=== PATIENT | male | born 1950 | race Two or more races ===

== ENCOUNTER 2018-07-10 14:09 | Emergency (ER) | payer OTHER ==
[~2018-07-10] VITALS: Ht 157.5 cm; Wt 83.9 kg
[2018-07-10] MEDS ORDERED: Hydrogen Peroxide 473ml Bottle TOPIC ONE (14:34)
[2018-07-10 14:40] VITALS: BP 154/83
--- NOTE | 2018-07-10 14:40 | Emergency Room Report ---
History of Present Illness General Chief Complaint: Laceration Source: Patient (Cynthia Canela) Present Illness HPI 68 YO male presents to the ED c/o laceration to head after hitting his head on the corner of a car door when getting in very quickly. pt. reports taking blood thinning medication. He denies N/V. reports feeling out of it /dizzy immediately after but has resolved. PT. reports now feeling "tired". Denies LOC. pt. reports injury occurred 40 minutes ago. pt. denies unilateral weakness , dysarthria, paresthesias, imbalance or any other notable symptoms. pt. reports he take Brilinta for cardiac hx. Denies neck or back pain. reports 6/ 10 in severity localized tenderness to the scalp/ head with bleeding. Denies nausea or vomiting. Pt. states his last tetanus vaccination was well over 10 years ago. (Cynthia Canela) Allergies: Coded Allergies: FISH CONTAINING PRODUCTS (Verified Allergy, Unknown, 07/10/18) Patient History Past Medical History: see triage record Past Surgical History: none Pertinent Family History: none Reviewed Nursing Documentation: PMH: Agreed; PSxH: Agreed (Cynthia Canela) Nursing Documentation-PMH Past Medical History: No History, Except For Hx Cardiac Problems: Yes - Bipass; stent x2 Hx Diabetes: Yes (Cynthia Canela) Review of Systems All Other Systems: negative except mentioned in HPI (Cynthia Canela) Physical Exam Vital Signs Date Time Temp Pulse Resp B/P (MAP) Pulse Ox O2 Delivery O2 Flow Rate FiO2 07/10/18 14:10 98.2 70 12 160/91 97 Room Air Sp02 EP Interpretation: reviewed, normal General Appearance: no apparent distress, alert, GCS 15, non-toxic Head: normocephalic, other - Left parietal Scalp laceration approx 2 cm in length, and does not extend all the way through the dermis. Eyes: bilateral eye normal inspection, bilateral eye PERRL, bilateral eye EOMI ENT: hearing grossly normal, normal voice Neck: full range of motion, no bony tend Respiratory: lungs clear, normal breath sounds, speaking full sentences Cardiovascular #1: regular rate, rhythm Musculoskeletal: back normal, gait/station normal, normal range of motion, tender - TTP to the left parietal area on head Neurologic: alert, oriented x3, responsive, motor strength/tone normal, sensory intact, normal gait, speech normal, grossly normal Psychiatric: judgement/insight normal Skin: normal color, no rash, warm/dry, well hydrated, laceration - Left parietal Scalp laceration approx 2 cm in length, and does not extend all the way through the dermis. (Cynthia Canela) Procedures Laceration/Wound Repair Laceration/Wound Repair : Consent: Verbal Wound Location: head Wound's Depth, Shape: superficial Wound Length (cm): 2 Wound Explored: clean Irrigated w/ Saline (ccs): 500 Wound Repaired With: Dermabond Sterile Dressing Applied?: No Splint Applied?: No Sling Applied?: No Patient Tolerated: Well Complications: None (Cynthia Canela) Medical Decision Making PA Attestation Dr. madden is my supervising Physician whom patient management has been discussed with. (Cynthia Canela) Medicare Attestation The history of Lily Mcwilliams has been reviewed and management options for him have been examined and discussed by Bertin Freed. I have personally examined and interviewed the patient. (Bertin Freed MD) Diagnostic Impression: Primary Impression: Laceration of scalp Qualified Codes: S01.01XA - Laceration without foreign body of scalp, initial encounter Additional Impression: Head injury without concussion or intracranial hemorrhage Qualified Codes: S09.90XA - Unspecified injury of head, initial encounter ER Course 68 YO male presents to the ED c/o laceration to head after hitting his head on the corner of a car door when getting in very quickly. pt. reports taking blood thinning medication. He denies N/V. reports feeling out of it /dizzy immediately after but has resolved. PT. reports now feeling "tired". Denies LOC. pt. reports injury occurred 40 minutes ago. pt. denies unilateral weakness , dysarthria, paresthesias, imbalance or any other notable symptoms. pt. reports he take Brilinta for cardiac hx. Denies neck or back pain. reports 6/ 10 in severity localized tenderness to the scalp/ head with bleeding. Denies nausea or vomiting. Pt. states his last tetanus vaccination was well over 10 years ago. Ddx considered but are not limited to laceration, tendon injury, cellulitis, ICH , subdural hematoma, hemorrhage just to name a few. Vital signs: are WNL, pt. is afebrile H&PE are most consistent with: Left parietal Scalp laceration approx 2 cm in length, and does not extend all the way through the dermis. ORDERS: -CT Head no contrast. - Unremarkable/ WNL ED INTERVENTIONS: -Tetanus vaccine was administered as pt. vaccination status was unknown. - The wound was copiously irrigated with normal saline, and explored for foreign body for which no FB was found. - hemostasis achieved with pressure, then derma-phipps was applied. --Pt. tolerated well and there were no complications. Pt. given strict ED return precautions along with information about Head Injuries and symptoms to look for. Pt. instructed to return to ED immediately if he begins experiencing any of the listed symptoms. DISCHARGE: At this time pt. is stable for d/c to home. Will provide printed patient care instructions, and any necessary prescriptions. Care plan and follow up instructions have been discussed with the patient prior to discharge. (Cynthia Canela) CT/MRI/US Diagnostic Results CT/MRI/US Diagnostic Results : Imaging Test Ordered: CT Head No Contrast Impression " No evidence of acute fracture, hemorrhage, or intracranial process." Per official radiology report- Please see report for specific details. (Cynthia Canela) Last Vital Signs Date Time Temp Pulse Resp B/P (MAP) Pulse Ox O2 Delivery O2 Flow Rate FiO2 07/10/18 14:10 98.2 70 12 160/91 97 Room Air (Cynthia Canela) Disposition: HOME, SELF-CARE Condition: Stable Scripts Acetaminophen* (TYLENOL EXTRA STRENGTH*) 500 Mg Tablet 500 MG ORAL Q6H, #20 TAB 0 Refills Prov: Cynthia Canela 07/10/18 Patient Instructions: Head Injury, Adult, [id number], Nonsutured Laceration Care Additional Instructions: Take medications as directed. Follow up with a Primary Care Provider in 3-5 days, even if your symptoms have resolved. --Please review list of primary care clinics, if you do not already have a primary care provider Return sooner to ED if new symptoms occur, or current symptoms become worse. - Please note that this Emergency Department Report was dictated using whoactuallybalancer scale technology software, occasionally this can lead to erroneous entry secondary to interpretation by the dictation equipment. Cynthia Canela Jul 10, 2018 14:40 Bertin Freed MD Jul 12, 2018 13:54
[2018-07-10] MEDS ORDERED: Tetanus/Diptheria/Pertussis Vaccine 0.5ml Syr IM ONE (14:45)
--- NOTE | 2018-07-10 15:56 | Diagnostic Imaging Report ---
EXAM: CT Head Without Intravenous Contrast CLINICAL HISTORY: PAIN TECHNIQUE: Axial computed tomography images of the head/brain without intravenous contrast. CTDI is 70.53 mGy and DLP is 1453 mGy-cm. One or more of the following dose reduction techniques were used: automated exposure control, adjustment of the mA and/or kV according to patient size, use of iterative reconstruction technique. COMPARISON: No relevant prior studies available. FINDINGS: Brain: Unremarkable. No evidence of acute intracranial hemorrhage. No significant white matter disease. No edema. No mass effect or midline shift. Ventricles: Unremarkable. No ventriculomegaly. Bones/joints: Unremarkable. No depressed skull fracture. Soft tissues: Unremarkable. Sinuses: Mild mucosal thickening in the left maxillary sinus. Remaining visualized paranasal sinuses are clear. Mastoid air cells: Unremarkable as visualized. No mastoid effusion. IMPRESSION: No acute intracranial findings.
[2018-07-10] MEDS ORDERED: TYLENOL EXTRA500 MG ORAL (16:00)
[2018-07-10 16:11] VITALS: BP 132/84
[2018-07-10 16:12] VITALS: BP 154/83
== END 2018-07-10 16:16 | disposition home or self-care (01) ==
LOC: EMR 14:39
DX: S01.01XA Laceration without foreign body of scalp, initial encounter (principal); W22.8XXA Striking against or struck by other objects, initial encounter; Y92.810 Car as the place of occurrence of the external cause; Z23 Encounter for immunization
CPT/HCPCS: 12001; 70450; 90471; 90715; 99284; Z7502